=== PATIENT | male | born 1975 | race Two or more races ===

== ENCOUNTER 2020-11-04 17:23 | Emergency (ER) | payer SELFPAY ==
[~2020-11-04] VITALS: Ht 167.6 cm; Wt 77.0 kg
[2020-11-04] MEDS ORDERED: LIDOCAINE HCL 1% 20ML VIAL (Pyxis) INJ INFIL ONE (18:30)
[2020-11-04] MEDS ORDERED: HALOPERIDOL LACTATE 5MG/ML VIAL IM ONE (19:30)
[2020-11-04 20:42] LABS: *AMPHETAMINES SCREEN URINE NEGATIVE (NEGATIVE); *BARBITURATES SCREEN URINE NEGATIVE (NEGATIVE); *BENZODIAZEPINES SCREEN URINE NEGATIVE (NEGATIVE)
[2020-11-04 20:43] LABS: *COCAINE SCREEN URINE NEGATIVE (NEGATIVE); CANNABINOID URINE SCREEN NEGATIVE (NEGATIVE); METHADONE URINE SCREEN NEGATIVE (NEGATIVE); OPIATES URINE SCREEN NEGATIVE (NEGATIVE); PHENCYCLIDINE URINE SCREEN NEGATIVE (NEGATIVE)
[2020-11-05 00:21] VITALS: BP 135/83
== END 2020-11-05 00:23 | disposition home or self-care (01) ==
LOC: ER 17:23
DX: S01.81XA Laceration without foreign body of other part of head, initial encounter (principal); F10.129 Alcohol abuse with intoxication, unspecified; W18.39XA Other fall on same level, initial encounter; Y93.89 Activity, other specified; Y92.89 Other specified places as the place of occurrence of the external cause; Y99.8 Other external cause status; Y90.8 Blood alcohol level of 240 mg/100 ml or more
CPT/HCPCS: 12002; 12014; 36415; 70450; 80305; 80320; 96372; 99285; J1630; J3490; Z7610; G0480

== ENCOUNTER 2020-11-17 10:48 | Emergency (ER) | payer SELFPAY ==
[~2020-11-17] VITALS: Ht 165.1 cm; Wt 71.0 kg
[2020-11-17] MEDS ORDERED: IBUPROFEN 400MG TABLET PO ONE (13:15)
[2020-11-17 13:21] VITALS: BP 133/80
== END 2020-11-17 13:21 | disposition home or self-care (01) ==
LOC: ER 10:48
DX: Z48.02 Encounter for removal of sutures (principal)
CPT/HCPCS: 99282